=== PATIENT | male | born 1945 | race Caucasian/White ===

== ENCOUNTER 2018-03-12 17:35 | Observation (INO) | payer MEDICARE, BC ==
--- NOTE | 2018-03-12 17:53 | ED ---
Allergic Reaction/Systemic - HPI Summary HPI Summary: This is isael Heard documenting for attending Nakul Vitale MD. Patient is a 72 y/o M BIBA due to an allergic reaction to a bee sting about an hour ago. He states he was moving his lawn when he was stung on the right-side of his neck. At time of incident, he notes dizziness, feelings of nearing LOC, and throat closing. Ambulance was called as he could not find his epi-pen. EMS gave epi-pen x1; epinephrine 08/999 .3 cc x2; benadryl, 50 mg IV; fluids. In the room, patient states he is feeling better and denies pain. He also reports no tongue swelling, lip swelling, nor closing of the throat. The patient reports some SOB at the time of the incident but this has since resolved. Allergies and home medications are reviewed. - History of Current Complaint Chief Complaint: EDAllergicReaction Time Seen by Provider: 03/12/18 17:50 Hx Obtained From: Patient Onset/Duration: Started hours ago - stung an hour ago, Resolved Severity Initially: Severe Severity Currently: None Pain Intensity: 0 Pain Scale Used: 0-10 Numeric - 0/10 Location: Discrete @ - right side of neck Aggravating Factor(s): Other - bee sting Alleviating Factor(s): Antihistamines - benadryl, Epinephrine, Other - fluids Associated Signs And Symptoms: Positive: Difficulty Breathing, Throat Tightening , Other: - dizziness, feelings of nearing LOC - Related Hx Possible Reaction To: Insect - bee sting - Allergies/Home Medications Allergies/Adverse Reactions: Allergies Allergy/AdvReac Type Severity Reaction Status Date / Time bee venom protein (honey bee) Allergy Severe anophylaxis Verified 03/12/18 19:01 Home Medications: Home Medications Acetaminophen [Acetaminophen Extra Strength] 500 mg PO BID 03/12/18 [History Confirmed 03/12/18] Aspirin EC TAB* [Ecotrin EC Low Dose 81 MG*] 81 mg PO QAM 03/12/18 [History Confirmed 03/12/18] Glucosa Lopez 2Kcl/Chondroitin Lopez [Glucosamine Chondroitin Caplet] 1 tab PO BID [History Confirmed 03/12/18] Lisinopril TAB* [Prinivil TAB*] 5 mg PO QPM 03/12/18 [History Confirmed 03/12/18 ] Metoprolol Tartrate TAB* [Lopressor TAB*] 25 mg PO BID 03/12/18 [History Confirmed 03/12/18] Multivit-Min/FA/Lycopen/Lutein [Centrum Silver Men Tablet] 1 tab PO DAILY [History Confirmed 03/12/18] PMH/Surg Hx/FS Hx/Imm Hx Musculoskeletal History: Denies: Hx Scoliosis Neurological History: Denies: Hx Headaches, Other Neuro Impairments/Disorders - Surgical History Surgery Procedure, Year, and Place: none noted Infectious Disease History: No Infectious Disease History: Denies: Traveled Outside the [place] in Last 30 Days - Family History Known Family History: Negative: Blood Disorder - Social History Alcohol Use: Occasionally Substance Use Type: Reports: None Smoking Status (MU): Never Smoked Tobacco Review of Systems Positive: Shortness Of Breath - since resolved , Other - throat closing, since resolved Positive: Other - NEGATIVE: swelling of lips or tongue Neurological: Other - dizziness, near LOC all since resolved All Other Systems Reviewed And Are Negative: Yes Physical Exam - Summary Physical Exam Summary: VITAL SIGNS: Reviewed. GENERAL: Patient is a well-developed and nourished male who is lying comfortable in the stretcher. Patient is not in any acute respiratory distress. HEAD AND FACE: No signs of trauma. No ecchymosis, hematomas or skull depressions. No sinus tenderness. EYES: PERRLA, EOMI x 2, No injected conjunctiva, no nystagmus. EARS: Hearing grossly intact. Ear canals and tympanic membranes are within normal limits. MOUTH: Oropharynx within normal limits. NECK: Supple, trachea is midline, no adenopathy, no JVD, no carotid bruit, no c- spine tenderness, neck with full ROM. CHEST: Symmetric, no tenderness at palpation LUNGS: Clear to auscultation bilaterally. No wheezing or crackles. CVS: Regular rate and rhythm, S1 and S2 present, no murmurs or gallops appreciated. ABDOMEN: Soft, non-tender. No signs of distention. No rebound no guarding, and no masses palpated. Bowel sounds are normal. EXTREMITIES: FROM in all major joints, no edema, no cyanosis or clubbing. NEURO: Alert and oriented x 3. No acute neurological deficits. Speech is normal and follows commands. SKIN: Dry and warm Triage Information Reviewed: Yes Vital Signs On Initial Exam: Initial Vitals Pulse Resp Pulse Ox 70 18 97 03/12/18 17:41 03/12/18 17:41 03/12/18 17:41 Vital Signs Reviewed: Yes Diagnostics - Vital Signs Vital Signs Temp Pulse Resp BP Pulse Ox 03/12/18 17:45 98.3 F 70 18 117/66 99 03/12/18 17:42 78 20 117/66 96 03/12/18 17:41 70 18 97 - Laboratory Result Diagrams: 03/12/18 18:21 03/12/18 18:21 Lab Statement: Any lab studies that have been ordered have been reviewed, and results considered in the medical decision making process. - Radiology CXR Xray Interpretation: No Acute Changes Radiology Interpretation Completed By: Radiologist - No evidence for acute disease. This report was reviewed by ED physician. - EKG 1816 Cardiac Rate: NL - Rate of 65 BPM EKG Rhythm: Sinus Rhythm EKG Interpretation: No ST elevation; q wave in 3 and aVF Re-Evaluation - Re-Evaluation First Eval Re-Evaluation Time: 19:04 Comment: Discussed labs and tests with patient, informed of likely admission to the hospital due to concerns of the amount of epinephrine given. Allergic Reaction Course/Dx - Course Assessment/Plan: This patient is a 72-year-old male who presents to the emergency room with a chief complaint of having an anaphylactic reaction. He reports that he was stung by a Bee and he is highly allergic to bees. They called EMS and he was given Benadryl IV and 3 doses of epinephrine since the patient was very hypertensive, but elected throat is closing, dizziness and feeling like he was going to pass out. At this time in the emergency department the patient is feeling better. The patient denies any tongue swelling, lip swelling of having an active process causing. The blood pressure has the pain improved and his 110/60 After the liter of fluids. This results without any significant abnormality except for what was a count of 19.7, potassium at 3.4 for which he was given potassium chloride, creatinine 1.18, glucose 151 and BMP were 183. In the ED course the patient was given Solu- Medrol and Pepcid, and he is stable. However because of the 3 doses of epinephrine I discussed my findings and test results with Dr. Machado and he accepted the patient for admission for further workup and management. - Diagnoses Provider Diagnoses: Anaphylactic reaction - Provider Notifications Discussed Care Of Patient With: Winston Machado Time Discussed With Above Provider: 19:17 Instructed by Provider To: Other - Dr. Machado was consulted on this patient 's case at 19:17. He agrees to accept patient for admission to [facility]. Discharge - Sign-Out/Discharge Documenting (check all that apply): Patient Departure - admit - Discharge Plan Condition: Good Disposition: ADMITTED TO [facility] Referrals: Sly Alvarez MD [Primary Care Provider] -
[2018-03-12] MEDS ORDERED: methylPREDNISolone 125 MG* 2 ML VIAL IV ONE (18:00)
[2018-03-12] MEDS ORDERED: NS 0.9% 1000 ML* 1,000 ML IV ONE (18:00)
--- OUTSIDE RECORDS SUMMARY | 2018-03-12 18:27 | XMS REPORT ---
:1945 External Reference #:[id number] Author Organization [employer] Address [address] [place] [address] [place] [address] Phone [phone] Care Team Providers Name Role Phone Kate Fuentes MD Care Team Information Business Process Lead Unavailable Sly Alvarez M.D. Primary Care Physician Unavailable Payers Type Date Identification Numbers Payment Provider Subscriber Medicare Primary Effective: Policy Number: Medicare Micheal Edwards 2010 [id number] PayID: [id number] [address] [place] [address] Medigap Part B Effective: 2012 Policy Number: BS [employer] Micheal Edwards [id number] PayID: [id number] [address] [address] [place] [address] Medigap Part B Effective: 2010 Policy Number: BS [facility] [id number] Expires: 2012 PayID: [id number] [address] [address] [place] [address] Problems Date Description Provider Status Onset: 03/08/2016 Heart valve replacement Edin Dickinson M.D. Active Onset: 03/08/2016 Essential hypertension Edin Dickinson M.D. 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 ETOH Use consumes 1-2 beers per day Smoking Patient is a former smoker Recreational Drug Use Denies Drug Use Daily Caffeine Consumes on average 2 cups of regular coffee per day Exercise Type/Frequency Exercises rarely Allergies, Adverse Reactions, Alerts Date Description Reaction Status Severity Comments 03/16/2014 Statins nausea active 03/16/2014 Bee Sting active Medications Medication Date Status Form Strength Qnty SIG Indications Ordering Provider Lisinopril 12/22/ Active Tablets 5mg 90tabs 1 by Edin 2013 mouth DBria Dickinson, every day M.D. Metoprolol 08/13/ Active Tablets 25mg 180tab 1 by Edin Tartrate 2011 isamar DBria Dickinson, twice a M.D. day Aspirin Ec / Active Tablets DR 81mg 1 by Unknown 0000 mouth every day Glucosamine / Active Capsules 2 tablet Unknown Chondroitin 0000 b.i.d Complex Centrum Silver / Active Tablets 1 by Unknown 0000 mouth every day Acetaminophen / Active Tablets 325mg 2 tablets Unknown 0000 by mouth every 6 hours as needed for pain/feve r Crestor 07/30/ Hx Tablets 10mg 90tabs 1 po qd Edin Moffett - Karly Dickinson, 03/15/ .DBria 2013 Cyclobenzaprine / Hx Tablets 5mg 30tabs 1 po tid Unknown HCL 0000 - prn for pulled 2015 muscle in back Amoxicillin / Hx Tablets 875mg Take One [facility], 0000 - Tablet By MD Kate Mouth 2015 Twice A Day Medications Administered in Office Medication Date Status Form Strength Qnty SIG Indications Ordering Provider Technetium TC Administered Injection Chase Bonilla M.D. Per Unit Dose Up To 40 Millicuries Vital Signs Date Vital Result Comment 03/04/2018 Height 70.5 inches 5'10.50" Weight 240.00 lb Heart Rate 58 /min BP Systolic Sitting 132 mmHg Lue lg cuff BP Diastolic Sitting 84 mmHg Lue lg cuff BP Systolic Standing 136 mmHg Lue BP Diastolic Standing 86 mmHg Lue Respiratory Rate 16 /min BMI (Body Mass Index) 33.9 kg/m2 Ejection Fraction 65-70% as of 02/2017 echo 02/26/2017 Height 70.5 inches 5'10.50" Weight 240.00 lb without shoes BP Systolic Sitting 122 mmHg Lue lg cuff BP Diastolic Sitting 80 mmHg Lue lg cuff BMI (Body Mass Index) 33.9 kg/m2 Ejection Fraction 56% date 02/24/14 ECHO 03/08/2016 Height 71.5 inches 5'11.50" Weight 240.00 lb w/o shoes BP Systolic Sitting 132 mmHg Ra lg cuff BP Diastolic Sitting 70 mmHg Ra lg cuff BP Systolic Standing 122 mmHg Ra lg cuff BP Diastolic Standing 78 mmHg Ra lg cuff BMI (Body Mass Index) 33.0 kg/m2 Ejection Fraction 56% Echo 02/24/14 02/16/2015 Height 71.5 inches 5'11.50" Weight 246.50 lb w/o shoes Heart Rate 52 /min reg BP Systolic Sitting 128 mmHg Rue, lg cuff BP Diastolic Sitting 74 mmHg Rue, lg cuff BP Systolic Standing 126 mmHg Rue BP Diastolic Standing 80 mmHg Rue Respiratory Rate 18 /min BMI (Body Mass Index) 33.9 kg/m2 Ejection Fraction 56% As of 02/24/14 echo 03/16/2014 Height 71.5 inches 5'11.50" Weight 246.00 lb Heart Rate 56 /min BP Systolic Sitting 130 mmHg Ra large cuff BP Diastolic Sitting 84 mmHg Ra large cuff BP Systolic Standing 138 mmHg Ra BP Diastolic Standing 90 mmHg Ra Respiratory Rate 16 /min BMI (Body Mass Index) 33.8 kg/m2 Results Test Date Test Result H/L Range Note Order 03/08/2016 EKG <pending> Basic Metabolic Panel 01/13/2014 Sodium 137 mmol/L 133-145 1 Potassium 4.3 mmol/L 3.7-5.6 1 Chloride 103 mmol/L 101-111 1 Co2 Carbon Dioxide 29 mmol/L 22-32 1 Anion Gap 5 mmol/L 2-11 1 Glucose 124 mg/dL High 70-100 1 Blood Urea Nitrogen 18 mg/dL 6-24 1 Creatinine 0.98 mg/dL 0.67-1.17 1 BUN/Creatinine Ratio 18.4 8-20 1 Calcium 9.6 mg/dL 8.6-10.3 1 Egfr Non- 76.1 >60 1 Egfr 97.8 >60 1, 2 CBC Auto Diff 01/13/2014 White Blood Count 6.7 10^3/uL 4.8-10.8 1 Red Blood Count 4.85 10^6/uL 4.0-5.4 1 Hemoglobin 14.8 g/dL 14.0-18.0 1 Hematocrit 44 % 42-52 1 Mean Corpuscular Volume 90 fL 80-94 1 Mean Corpuscular Hemoglobin 31 pg 27-31 1 Mean Corpuscular HGB Conc 34 g/dL 31-36 1 Red Cell Distribution Width 13 % 10.5-15 1 Platelet Count 200 10^3/uL 150-450 1 Mean Platelet Volume 8 um3 7.4-10.4 1 Abs Neutrophils 4.2 10^3/uL 1.5-7.7 1 Abs Lymphocytes 1.6 10^3/uL 1.0-4.8 1 Abs Monocytes 0.5 10^3/uL 0-0.8 1 Abs Eosinophils 0.4 10^3/uL 0-0.6 1 Abs Basophils 0 10^3/uL 0-0.2 1 Abs Nucleated RBC 0.01 10^3/uL 1 Granulocyte % 62.1 % 38-83 1 Lymphocyte % 24.1 % Low 25-47 1 Monocyte % 8.0 % 1-9 1 Eosinophil % 5.3 % 0-6 1 Basophil % 0.5 % 0-2 1 Nucleated Red Blood Cells % 0.1 1 Lipid Profile (Trig/Chol/HDL) 01/13/2014 Triglycerides 123 mg/dL 1, 3 Cholesterol 212 mg/dL 1, 4 HDL Cholesterol 44.0 mg/dL 1, 5 LDL Cholesterol 143 mg/dL 1, 6 Lipid Profile (Trig/Chol/HDL) 01/25/2013 Triglycerides 142 mg/dL 40-200 Cholesterol 201 mg/dL High Less than 200 HDL Cholesterol 42 mg/dL 40-60 7 Cholesterol/HDL Ratio 4.8 Average High 1-4.44 LDL Cholesterol 130.6 High Less Than 100 8 Laboratory test finding 01/25/2013 Alt 24 U/L 14-54 9 Ast 23 U/L 12-42 10 Creatine Kinase 108 U/L 0-200 11 1 FASTING 2 Because ethnic data is not always readily available, this report includes an eGFR for both -Americans and non- Americans. The National Kidney Disease Education Program (NKDEP) does not endorse the use of the MDRD equation for patients that are not between the ages of 18 and 70, are , have extremes of body size, muscle mass, or nutritional status, or are non- or non-. According to the National Kidney Foundation, irrespective of diagnosis, the stage of the disease is based on the level of kidney function: Stage Description GFR(mL/min/1.73 m(2)) 1 Kidney damage with normal or decreased GFR 90 2 Kidney damage with mild decrease in GFR 60-89 3 Moderate decrease in GFR 30-59 4 Severe decrease in GFR 15-29 5 Kidney failure <15 (or dialysis) 3 Desirable <150 Borderline high 150-199 High 200-499 Very High >500 4 Desirable <200 Borderline high 200-239 High >239 5 Low <40 Desirable: 40-60 High: >60 6 Desirable <100 Near Optimal 100-129 Borderline high 130-159 High 160-189 Very High >189 7 HDL Interpretation: Undesirable: High Risk: Less than 40 mg/dL Desirable: Low Risk: Greater than 60 mg/dL 8 LDL Interpretation: Low Risk Optimal Level: LDL Less than 100 mg/dL Near or Above Optimal: LDL 100-129 mg/dL Borderline High Risk: LDL 130-159 mg/dL High Risk: LDL 160-189 mg/dL Very High Risk: LDL Greater than 189 mg/dL 9 FASTING 10 FASTING 11 FASTING Procedures Date CPT Code Description Status 03/04/2018 10014 EKG Tracing & Interpretation Completed 02/27/2017 20573 ECHO Transthoracic, Real-Time 2D With Doppler And Color Completed Flow 02/26/2017 74454 EKG Tracing & Interpretation Completed 03/08/2016 71962 EKG Tracing & Interpretation Completed 02/16/2015 59599 EKG Tracing & Interpretation Completed 03/16/2014 59131 EKG Tracing & Interpretation Completed 02/24/2014 94437 ECHO Transthoracic, Real-Time 2D With Doppler And Color Completed Flow 01/28/2013 30788 EKG Tracing & Interpretation Completed 08/26/2012 57527 Mobile Cardiovascular Telemetry Over 24 HR Up To 30 Completed Days 08/19/2012 52115 ECHO Transthoracic, Real-Time 2D With Doppler And Color Completed Flow 08/13/2012 18358 Stress Test Completed 08/13/2012 36610 Myocardial Perfusion Imaging Tomographic (Spect) Completed Multiple Studies 08/12/2012 04115 Holter Monitoring 24 HR New Completed Encounters Type Date Location Provider CPT E/M Dx Office Visit 03/04/2018 [facility] Emily Dickinson, 99824 I35.0 9:15a Alfonzo Foley Z95.2 I71.2 Office Visit 02/26/2017 9:30a [facility] Emily Dickinson 73289 I35.0 Alfonzo Foley Z95.2 I10 Office Visit 03/08/2016 10:45a [facility] Emily Dickinson 95213 I35.0 Alfonzo Foley I10 Z95.2 Office Visit 02/16/2015 9:45a [facility] Edin Dickinson, 38828 424.1 Alfonzo Foley 401.9 Office Visit 03/16/2014 9:45a [facility] Emily Dickinson, 30067 424.1 Alfonzo Foley 401.9 Office Visit 01/28/2013 1:00p [facility] Emily Dickinson, 06150 424.1 Alfonzo Foley 401.9 Office Visit 09/28/2012 3:00p [facility] Edin Dickinson 38418 424.1 Tube Blower AT [facility] M.Karly 424.2 Office Visit 08/31/2012 3:00p [facility] Emily Dickinson, 00980 427.1 Tube Blower AT [facility] Alaina 424.1 746.89 Office Visit 08/13/2012 11:30a [facility] Adenike Jaime M.D. [address] [facility] 780.4 424.1 426.11 Office Visit 07/30/2012 11:45a [facility] Emily Dickinson, 32384 424.1 Alfonzo Foley Plan of Care Future Appointment(s):03/10/2018 9:00 am - [place] [facility] Schedule at [facility]03/04/2018 - Edin Dickinson M.D.I35.0 Nonrheumatic aortic (valve) stenosisNew Orders:EchocardiogramFollow up:1 yearZ95.2 Presence of prosthetic heart fzfkyN39.2 Thoracic aortic aneurysm, without rupture
[2018-03-12 18:31] LABS: ABS Basophils 0 10^3/ul (0-0.2); ABS Eosinophils 0.1 10^3/ul (0-0.6); ABS Lymphocytes 1.9 10^3/ul (1.0-4.8); ABS Monocytes 1.4 10^3/ul (0-0.8); ABS Neutrophils 16.2 10^3/ul (1.5-7.7); ABS Nucleated RBC 0 10^3/ul; Eosinophil % 0.5 % (0-6); Hematocrit 42 % (42-52); Hemoglobin 14.2 g/dl (14.0-18.0); Lymphocyte % 9.7 % (25-47); Mean Corpuscular HGB Conc 34 g/dl (31-36); Mean Corpuscular Hemoglobin 31 pg (27-31); Mean Corpuscular Volume 91 fL (80-94); Mean Platelet Volume 8.6 um3 (7.4-10.4); Nucleated Red Blood Cells % 0; Platelet Count 152 10^3/ul (150-450); Red Blood Count 4.64 10^6/ul (4.00-5.40); Red Cell Distribution Width 14 % (10.5-15); White Blood Count 19.7 10^3/ul (3.5-10.8)
--- NOTE | 2018-03-12 18:38 | RAD ---
INDICATION: Anaphylactic reaction. COMPARISON: There are no prior studies available for comparison. TECHNIQUE: A portable view of the chest was obtained. FINDINGS: The patient is status post sternotomy. The heart is within normal limits in size. The lungs are clear. No pleural effusion is seen. IMPRESSION: NO EVIDENCE FOR ACUTE DISEASE.
[2018-03-12 18:47] LABS: EGFR Non-African American 60.7 (>60)
[2018-03-12] MEDS ORDERED: Potassium Chlor TAB* 20 MEQ TAB.ER PO ONE (19:00)
[2018-03-12] MEDS ORDERED: Magnesium Hydroxide LIQ* 30 ML UDC PO PRN (20:15)
[2018-03-12] MEDS ORDERED: Albuterol 2.5 MG/3 ML NEB.SOL* (0.083%) INH PRN (20:15)
[2018-03-12] MEDS ORDERED: Ondansetron INJ* 2 MG/ML VIAL IV PRN (20:15)
[2018-03-12] MEDS ORDERED: Acetaminophen TAB* 325 MG PO PRN (20:15)
[2018-03-12] MEDS ORDERED: Al Hydrox/Mg Hydrox/Simet LIQ* 30 ML UDC PO PRN (20:15)
[2018-03-12] MEDS ORDERED: EPINEPHRINE 1 MG/ML 1 ML VIAL SUBCUT PRN (20:20)
[2018-03-12] MEDS ORDERED: diPHENhydraMINE PO* 25 MG PO PRN (20:20)
[2018-03-12] MEDS: Heparin VIAL(*) 5000 UNITS/ML VIAL (FIVE THOUSAND) SUBCUT SCH (22:30)
--- NOTE | 2018-03-12 23:03 | HP ---
CC: Dr. Alvarez * ADMISSION HISTORY AND PHYSICAL: DATE OF ADMISSION: 03/12/18 PATIENT OF: Dr. Winston Machado. ATTENDING HOSPITALIST: Dr. Winston Machado.* (DICTATED BY STEPHANIE VITALE ) PRIMARY CARE PROVIDER: Dr. Sly Alvarez. CHIEF COMPLAINT: Allergic reaction. HISTORY OF PRESENT ILLNESS: Mr. Edwards is a 72-year-old gentleman, who is relatively healthy given his age with only past medical history significant for hypertension and aortic valve disease for which he had aortic valve replacement back in 2011, who presented to the emergency room earlier today after he was stung by a bee to the right aspect of his neck. The patient reports a history of severe BEE allergy. He noticed some swelling and itching immediately after his sting. His went back home looking for his EpiPens, but unfortunately was not able to get them. Therefore, she called the ambulance, who came and gave him a total of 3 doses of epinephrine injection with some relief of his symptoms. The patient notes that he was mowing the grass when it happened and last time he had similar episode was 5 years ago when he got stung on his leg and only needed one ampule of epinephrine shot. During his ambulance ride to the emergency room, he noticed increased swelling to the area for which 2 extra doses were given there to make it a total of 3 prior to presentation. He presented to the emergency room and noted to have a blood pressure of 117/66 as well as a heart rate of 70. He reported some mild dizziness, but denied any difficulty breathing, dysphagia, blurred vision, double vision, headache or any other associated symptoms. He has a known BEE VENOM allergy as well as his son and his father as well. He was kept in the emergency room and received a bolus of normal saline as well as a dose of Benadryl that seemed to control his itching. He also received a dose of Solu-Medrol 125 mg with almost complete resolution of his symptoms. The patient continued to have a borderline hypotension for which we were asked to see him for further evaluation and to discus admission for observation overnight. PAST MEDICAL HISTORY: As mentioned above, significant for hypertension, osteoarthritis, obesity, and aortic valve disease. PAST SURGICAL HISTORY: Significant for right total knee replacement in 1999 and aortic valve replacement in 2011. MEDICATIONS: His medications at home include: 1. Tylenol 500 mg p.o. b.i.d. 2. Aspirin 81 mg p.o. daily. 3. Glucosamine chondroitin 1 tablet p.o. b.i.d. 4. Lisinopril 5 mg p.o. q.h.s. 5. Metoprolol 25 mg p.o. b.i.d. 6. Multivitamin 1 tablet p.o. daily. ALLERGIES: Includes BEE VENOM; however, he reports no known drug allergies. FAMILY HISTORY: Reviewed and noncontributory. SOCIAL HISTORY: The patient is retired. He is a nonsmoker, who drinks alcohol occasionally. He is , lives with his , Elizabet, who is the healthcare proxy. REVIEW OF SYSTEMS: See HPI. Otherwise, 14 points review of systems were examined and were essentially negative. PHYSICAL EXAMINATION GENERAL: He is a pleasant, healthy appearing, older gentleman, in no acute distress or discomfort at the time of admission. VITAL SIGNS: Revealed a pulse of 60, blood pressure of 129/78, temperature of 98.3, respirations of 20 with O2 sat of 96% on room air. HEENT: Head is normocephalic, atraumatic. Sclerae anicteric. PERRLA. EOMs intact. Oropharynx is pink and moist. NECK: Supple. Trachea midline. No cervical adenopathy, thyromegaly or JVD. Right side of the neck about an inch under the mandibular angle, there is a small area of induration and erythema measuring less than 1 cm with a center small pinpoint inclusion area. There is no active bleeding, pain or discharge noted. LUNGS: Clear to auscultation bilaterally. There is no wheezing, rales or rhonchi. HEART: Regular rate and rhythm. Normal S1 and S2 without rubs, murmurs or gallops. BACK: Normal curvature. No CVA tenderness. ABDOMEN: Soft, nontender, and nondistended. No hernias, masses or hepatosplenomegaly. EXTREMITIES: Without cyanosis, clubbing or edema. RECTAL: Deferred at this time. NEUROLOGIC: He is awake, alert, and oriented x3. Neuro exam with normal sensation throughout. Good bilateral handgrip and tongue is midline. LABORATORY WORKUP: CBC with white count of 19,700, hemoglobin of 14.2, hematocrit of 42, and platelets of 152. Chemistry panel with sodium of 140, potassium 3.4, chloride 107, CO2 of 22, BUN of 19, and creatinine of 1.1. His glucose 151, lactic acid 1.8. LFTs within normal limits. BNP 183. ACCESSORY DIAGNOSTIC DATA: EKG revealed normal sinus rhythm with no ST changes. Chest x-ray with no evidence for acute disease. IMPRESSION: A 72-year-old gentleman with past medical history significant for hypertension and severe allergies to BEE VENOM, who unfortunately sustained a bee sting earlier today requiring 3 separate doses of subcu epinephrine and Benadryl with associated hypotension, who will be admitted for observation to medical floor for the followin. Severe allergic reaction. The patient appears to be stable at this point. He had received 125 mg of Solu-Medrol in the ED after 3 separate doses of epinephrine via EMS. He showed no difficulty breathing or signs of anaphylactic shot. His blood pressure actually has normalized over time after 1 L of normal saline. We will continue to monitor his vitals and will hold off his metoprolol night dose. He appears to be clinically stable. We will follow him up. 2. Hypertension. Appears to be stable at this point. We will hold his night metoprolol and we will resume his full meds tomorrow. 3. Leukocytosis. His CBC showed white count of 19,000, which I believe is a stress reaction to his recent insect bite as well as multidoses of epinephrine. I will repeat his CBC in the morning to document resolution. 4. Morbid obesity. We will provide supportive care. 5. DVT prophylaxis. The patient is at high risk and will be covered with subcu heparin while he is admitted. 6. Code status. He is a full code and his , Elizabet, is the healthcare proxy carrier. 7. Disposition. Admit to telemetry for observation overnight. Continue monitoring vitals for signs of severe allergic reaction, likely to be discharged home tomorrow when stable. TIME SPENT: Approximately, 50 minutes were spent admitting this patient with greater than 50% taking history and performing physical exam. I have discussed the case with Dr. Winston Machado, my attending, who agreed to plan of care. STEPHANIE VITALE [id number]/[facility] #: [id number] RACH
[2018-03-13] MEDS: Heparin VIAL(*) 5000 UNITS/ML VIAL (FIVE THOUSAND) SUBCUT SCH (05:31)
[2018-03-13 06:40] LABS: ABS Basophils 0 10^3/ul (0-0.2); ABS Eosinophils 0 10^3/ul (0-0.6); ABS Lymphocytes 0.6 10^3/ul (1.0-4.8); ABS Monocytes 0.1 10^3/ul (0-0.8); ABS Neutrophils 10.1 10^3/ul (1.5-7.7); ABS Nucleated RBC 0 10^3/ul; Eosinophil % 0 % (0-6); Hematocrit 41 % (42-52); Hemoglobin 14.1 g/dl (14.0-18.0); Lymphocyte % 5.7 % (25-47); Mean Corpuscular HGB Conc 34 g/dl (31-36); Mean Corpuscular Hemoglobin 31 pg (27-31); Mean Corpuscular Volume 90 fL (80-94); Mean Platelet Volume 8.8 um3 (7.4-10.4); Nucleated Red Blood Cells % 0; Platelet Count 139 10^3/ul (150-450); Red Blood Count 4.58 10^6/ul (4.00-5.40); Red Cell Distribution Width 14 % (10.5-15); White Blood Count 10.8 10^3/ul (3.5-10.8)
[2018-03-13 06:59] LABS: EGFR Non-African American 63.1 (>60)
[2018-03-13 08:42] VITALS: BP 125/99
[2018-03-13] MEDS ORDERED: Metoprolol Tartrate TAB* 25 MG PO SCH (09:00)
[2018-03-13] MEDS ORDERED: Aspirin EC TAB* 81 MG TAB.EC PO SCH (09:00)
[2018-03-13] MEDS ORDERED: Lisinopril TAB* 5 MG PO SCH (18:00)
--- NOTE | 2018-03-14 07:01 | DS ---
CC: Dr. Sly Alvarez* DISCHARGE SUMMARY: DATE OF ADMISSION: 03/12/18 DATE OF DISCHARGE: 03/13/18 PROVIDER: Elda Jay NP ATTENDING PHYSICIAN: Dr. Jose Eduardo Hope * (dictated by Elda Jay NP ) PRIMARY CARE PROVIDER: Dr. Sly Alvarez. PRIMARY DIAGNOSES: 1. Allergic reaction to bee sting. 2. Hypotension. SECONDARY DIAGNOSES: 1. Hypertension. 2. Osteoarthritis. 3. Obesity. 4. Aortic valve disease with aortic valve replacement in 2012. STUDIES COMPLETED WHILE IN THE HOSPITAL: He had chest x-ray on 03/12/18. Radiologist's impression: No evidence of acute disease. He had an electrocardiogram on 03/12/18 which showed sinus rhythm at a rate of 65. DISCHARGE MEDICATIONS: New home medications: 1. EpiPen take as needed for bee stings or allergic reactions. 2. Benadryl 25 mg p.o. q.6 hours as needed for itching, hives. Continued home medications: 1. Acetaminophen 500 mg p.o. b.i.d. 2. Centrum Silver 1 tab p.o. daily. 3. Glucosamine 1 tablet p.o. b.i.d. 4. Metoprolol 25 mg p.o. b.i.d. 5. Lisinopril 5 mg p.o. q.p.m. 6. Aspirin 81 mg p.o. q.a.m. HISTORY OF PRESENT ILLNESS AND HOSPITAL COURSE: Mr. Edwards is a 72-year-old gentleman who is relatively healthy given his age with only past medical history significant for hypertension and aortic valve disease with aortic valve replacement in 2011 who presented to emergency room after being stung by a bee in the right aspect of his neck. The patient reports a history of severe bee allergy and noticed swelling and itching and immediately after the sting, his went back home looking for his EpiPen, unfortunately, was unable to find them. Therefore, she called the ambulance and who came and gave him 3 doses of epinephrine injection with some relief of the symptoms. The patient notes that he was mowing the grass when this happened and last time he had the similar episode was approximately 5 years ago. He got stung in the leg and needed an ampule of epinephrine shot. During the ambulance ride to the emergency room, they noticed increased swelling in the area for which 2 extra doses were given to make a total of 3 prior to presentation. He presented to the emergency room and noted to have a blood pressure of 117/66 and a heart rate of 70. He reported some mild dizziness, but denied any difficulty breathing dysphagia, double vision, headache or any associated symptoms. He has a known BEE VENOM allergy. While in the emergency room, he received a bolus of normal saline. He received Benadryl to control the itching. He also received a dose of Solu-Medrol 125 mg with complete resolution of his symptoms. The patient continued to have some borderline hypotension and we were asked to evaluate him further for admission and overnight observation. While in the hospital, we monitored him on telemetry. His vital signs remained stable. He was mildly hypotensive during the early a.m. The lowest of his blood pressure was 96/61. At 07:30 on 03/13/18, his blood pressure was 125/99. Heart rate was 80, respirations were 18, O2 saturation was 96%, temperature was 97.4. He was feeling in his normal state of health with no complaints. No itching or swelling noted to the right side of his neck. At this time, Mr. Edwards is stable for discharge home. Vital signs were as follows: Temperature was 97.4, heart rate was 80, respirations were 18, O2 saturation 96%, blood pressure 125/99. REVIEW OF SYSTEMS: The patient denied any nausea, vomiting, or diarrhea. Denied any abdominal pain. Denied any chest pain or shortness of breath. He denies any itching or swelling. Denies any throat tightness. Denies any wheezing. Denies any fever or chills. PHYSICAL EXAMINATION: HEENT: Head is atraumatic, normocephalic. Eyes, sclerae anicteric and not pale. Oral mucosa appear to be moist. Neck is supple. Trachea is midline. There is no JVD. There is no swelling or redness noted to the right side of his neck. Lungs are clear to auscultation bilaterally. No accessory muscle use. There are no wheezes, rales, or rhonchi. Cardiac: S1, S2. Regular rate and rhythm. There are no murmurs, rubs, or gallops. Abdomen is soft, nontender, nondistended. Bowel sounds are present x4. Extremities: He is able to move all 4 extremities with 5/5 strength. There is no clubbing or edema. Neurologic: He is awake, alert, and oriented x3. He has got no gross focal neuro deficits. DISCHARGE PLAN: Mr. Edwards will be discharged back home. Activity as tolerated. 1. Allergic reaction to bee venom. I will prescribe him EpiPens. He can take an injection as needed for bee stings. He can take Benadryl 25 mg q.6 hours if he develops any itching or hives. At this time, he has no further symptoms. 2. Hypertension. He should continue on his home medications as previously prescribed. FOLLOWUP: He should follow up with his primary care provider in 1 to 2 weeks as needed. The patient was instructed to return to the emergency room if he develops any chest pain, shortness of breath, dizziness, itching, hives, throat tightness, swelling, or any other concerning symptoms. The patient verbalized understanding. This is a summarization of his hospitalization. For further details, please see the entire medical record. TIME SPENT: Time spent on this discharge was approximately 60 minutes, greater than half that time was spent with the patient and his discussing discharge plans and instructions. CONDITION ON DISCHARGE: Stable. ELDA JAY NP [id number]/[facility] #: [id number] RACH
== END 2018-03-13 11:30 | disposition home or self-care (01) ==
LOC: ED 17:35 → MED 20:15
PROVIDERS: ADMIT Hospitalist; ATTEND Hospitalist
DX: T63.441A Toxic effect of venom of bees, accidental (unintentional), initial encounter (principal); Y92.9 Unspecified place or not applicable; I95.9 Hypotension, unspecified; I10 Essential (primary) hypertension; M19.90 Unspecified osteoarthritis, unspecified site; E66.9 Obesity, unspecified; I35.9 Nonrheumatic aortic valve disorder, unspecified; Z95.4 Presence of other heart-valve replacement; Z79.82 Long term (current) use of aspirin
CPT/HCPCS: 36415; 71045; 80048; 80053; 83605; 83880; 85025; 86140; 93005; 96374; 96375; 99284; A9270-GY; G0378; J1644; J2930

== ENCOUNTER 2018-08-28 12:29 | Day surgery (SDC) | payer MEDICARE, BC ==
[~2018-08-28 12:29] MED LIST: Buffered Lidocaine 0.9% SYRIN* 5 ML/SYR SYRINGE INTRADERM ONE; Dexamethasone IV* 4 MG/ML 1 ML (4 MG) IV SLOW PU ONE; Famotidine IV* 10 MG/ML 2 ML (20 mg) IV ONE; Lactated Ringers 1000 ML Bag* 1,000 ML IV SCH; Lidocaine 2% PF * 5 ML VIAL ONE; Midazolam* 1 MG/ML 2 ML VIAL (2 MG) ONE; Propofol* 10 MG/ML 20 ML BTL ONE; fentaNYL* 50 MCG/ML 2 ML VIAL (100 MCG VIAL) ONE
[2018-08-28] MEDS ORDERED: ceFAZolin 2 GM PREMIX in ORs 0 GM/0 ML BAG IVPB ONE (12:41)
[2018-08-28] MEDS ORDERED: Dexamethasone IV* 4 MG/ML 1 ML (4 MG) ONE ×2 (12:41→12:49)
[2018-08-28] MEDS ORDERED: Famotidine IV* 10 MG/ML 2 ML (20 mg) ONE ×2 (12:41→12:49)
[2018-08-28] MEDS ORDERED: ceFAZolin 2 GM PREMIX in ORs 2 GM/50 ML BAG IVPB ONE (12:49)
[2018-08-28] MEDS ORDERED: Buffered Lidocaine 1% SYRIN* 1 ML/SYRINGE ONE (12:49)
[2018-08-28] MEDS ORDERED: Propofol* 10 MG/ML 20 ML BTL ONE (13:43)
[2018-08-28] MEDS ORDERED: EPINEPHRINE 1 MG/ML 1 ML VIAL ONE (14:31)
[2018-08-28] MEDS ORDERED: fentaNYL* 50 MCG/ML 5 ML VIAL (250 MCG VIAL) ONE (14:55)
[2018-08-28] MEDS ORDERED: Ketorolac INJ* 30 MG/ML 1 ML VIAL IV PRN (15:12)
[2018-08-28] MEDS ORDERED: Naloxone* 0.4 MG/ML 1 ML VIAL IV PRN (15:12)
[2018-08-28] MEDS ORDERED: DiMENhydriNATE IV* 50 MG/ML VIAL IV PUSH PRN (15:12)
[2018-08-28] MEDS ORDERED: fentaNYL* 50 MCG/ML 2 ML VIAL (100 MCG VIAL) IV PRN (15:12)
[2018-08-28] MEDS ORDERED: Acetaminophen TAB* 325 MG PO PRN (15:12)
[2018-08-28] MEDS ORDERED: Morphine VIAL* 4 MG/ML VIAL (1 ml vial) IV PRN (15:12)
[2018-08-28] MEDS ORDERED: HYDROcodone/ACETAMIN 5-325 MG* 1 TAB PO PRN (15:12)
[2018-08-28] MEDS ORDERED: PROCHLORPERAZINE INJ 5 MG/ML 2 ML VIAL IV PRN (15:12)
[2018-08-28] MEDS ORDERED: Bupivacaine 0.5% W/EPI SDV* 30 ML VIAL ONE (15:30)
[2018-08-28 17:32] VITALS: BP 130/84
--- NOTE | 2018-08-30 03:23 | OP ---
OPERATIVE REPORT: DATE OF OPERATION: 08/28/18 DATE OF : 45 SURGEON: Amadou Melara MD COOK FRY: Jess Fernando ANESTHESIOLOGIST: Dr. Chan Jordan. ANESTHESIA: General anesthesia. PRE-OP DIAGNOSES: 1. Left knee medial meniscus tear. 2. Left knee mild osteoarthritis. POST-OP DIAGNOSES: 1. Left knee medial meniscus tear. 2. Left knee significant anterior synovitis. OPERATIVE PROCEDURE: 1. Left knee arthroscopic partial medial meniscectomy. 2. Left knee arthroscopic anterior synovectomy. INDICATIONS FOR PROCEDURE: The patient is a 73-year-old man with a painful symptomatic left knee med ial meniscus tear, who failed to respond to nonoperative management and opted for surgery. IV FLUIDS: 700 cc crystalloid. ANTIBIOTICS: 2 g Ancef IV. TOURNIQUET TIME: 31 minutes at 300 mmHg. SKIN TO SKIN TIME: 27 minutes. ARTHROSCOPIC FLUID UTILIZED: Unknown. SPECIMEN: None. IMPLANTS: None. ESTIMATED BLOOD LOSS: Minimal. COMPLICATIONS: None. DESCRIPTION OF PROCEDURE: In preoperative holding, the patient signed a written consent. Operative extremity was marked in preoperative holding. The patient was taken back to the operating room and p laced supine on the operating room table. The patient was sedated and intubated. A tourniquet was pl aced around the proximal left thigh. [place] bump placed under left hemipelvis. Distal left thigh p laced in C-clamp circumferential thigh rodriguez. The table was elevated and the foot of the table was dropped. The left lower extremity was prepped and then draped. A surgical time-out was performed. The Esmarch was applied and the tourniquet was elevated to 300 mmHg. Anterolateral knee arthroscopy portal was established using standard technique. There was significant bursitis and a very large plica anteriorly about the knee, so much so that for entrance into medial and lateral compartments, it required that this be first debrided. With the knee still in extension, I established an anteromedial knee arthroscopy portal. Entered an arthroscopic shaver and debrided the significant amount of synovitic tissue about the anterior aspect of the knee. I moved to the medial compartment. The patient had a complex shape tear about the posterior horn of the medial meniscus. There was tearing in multiple directions about the posterior horn at its inner half. I also noted a clear radial tear adjacent to the posterior root. Using a new anteromedial knee arthroscopy portal, I debrided the meniscus tear back to a stable rim o f tissue using arthroscopic shaver and meniscal bitter, working through medial and then lateral ericka l. I confirmed the stability of the remaining meniscus. Throughout the posterior horn, there was st ill plenty of peripheral meniscus with the exception of that the radial tear site adjacent to the pos terior root. I confirmed cruciate ligaments intact centrally. I debrided some additional anterior synovitic tissu e. No lateral compartment pathology. No significant articular cartilage lesions noted anywhere in t he knee. Removed instruments and fluid from the knee. Closed skin incisions with figure-of- eight stitches us ing nylon 3-0 suture. Xeroform, 4x4s, ABD, sterile Webril, Tino bandage from foot to proximal thigh. Tourniquet was then dropped. Cooling unit placed on the knee. The patient was awakened, extubated, and taken to the PACU. DISPOSITION: Wound care instructions provided. The patient placed on Percocet as needed for pain co ntrol. Aspirin for 2 weeks for DVT prophylaxis. Also placed the patient on a short course of Keflex , 3 days as he has had a recent preoperative cortisone injection. He understood that this increased his risk of infection. The patient will follow up with me in clinic 10 to 14 days postoperatively. The patient will start physical therapy immediately. [id number]/[facility] #: [id number]
== END 2018-08-28 17:44 | disposition home or self-care (01) ==
LOC: OR 12:29
PROVIDERS: ATTEND Orthopaedic Surgery
DX: S83.242A Other tear of medial meniscus, current injury, left knee, initial encounter (principal); M17.12 Unilateral primary osteoarthritis, left knee; X58.XXXA Exposure to other specified factors, initial encounter; Y92.9 Unspecified place or not applicable; I10 Essential (primary) hypertension; Z87.891 Personal history of nicotine dependence; Z95.3 Presence of xenogenic heart valve
CPT/HCPCS: J0690; J1100; J2250; J2704; J3010